=== PATIENT | male | born 1980 | race Caucasian/White ===

== ENCOUNTER 2018-07-22 17:09 | Emergency (ER) | payer BC ==
[2018-07-22 19:12] VITALS: BP 137/82
--- NOTE | 2018-07-22 19:43 | UC ---
Throat Pain/Nasal Kamaljit HPI - HPI Summary HPI Summary: 38-year-old male with past medical history presents with 1 week of dry scratchy throat initially started out with cough, cough has improved, and throat dryness and scratchiness has persisted. Denies any fevers. No nausea or vomiting. Denies any abdominal pain. Has had similar prior episodes but not of this duration. - History of Current Complaint Chief Complaint: UCGeneralIllness Stated Complaint: THROAT COMPLAINT Pain Intensity: 4 - Allergies/Home Medications Allergies/Adverse Reactions: Allergies Allergy/AdvReac Type Severity Reaction Status Date / Time No Known Allergies Allergy Verified 07/22/18 19:05 Home Medications: Home Medications Pectin [Throat Drops] 6 mg MM DAILY PRN 07/22/18 [History Confirmed 07/22/18] PMH/Surg Hx/FS Hx/Imm Hx - Additional Past Medical History Additional PMH: Patient denies any history of diabetes, hypertension, or hyperlipidemia Previously Healthy: Yes - Surgical History Surgical History: None - Social History Alcohol Use: Weekly Substance Use Type: None Smoking Status (MU): Former Smoker When Did the Patient Quit Smoking/Using Tobacco: 2006 Review of Systems Constitutional: Negative Skin: Negative Eyes: Negative ENT: Sore Throat Respiratory: Negative Cardiovascular: Negative Gastrointestinal: Negative Musculoskeletal: Negative Neurological: Negative All Other Systems Reviewed And Are Negative: Yes Physical Exam - Summary Physical Exam Summary: Gen: alert, in no acute distress HEENT: EOMI, normocephalic, atruamatic, posterior pharyngeal erythema, no tonsillar exudate or swelling Neck: supple, no masses. Full range of motion without stiffness. CV: Normal s1 s2, no murmurs Resp: normal breath sounds b/l GI: no tenderness, no masses Musculoskeletal: normal ROM all 4 extremities Neuro: no obvious focal neurological deficits Skin: no rash Lymph: mild cervical lymphadenopathy Psych: appropriate affect, oriented Triage Information Reviewed: Yes Vital Signs: Initial Vital Signs Temp 37.3 C 07/22/18 19:06 Pulse 76 07/22/18 19:06 Resp 16 07/22/18 19:06 BP 137/82 07/22/18 19:06 Pulse Ox 100 07/22/18 19:06 Throat Pain/Nasal Course/Dx - Course Assessment/Plan: Rapid strep negative, I instructed the patient to follow up with his primary care physician - Differential Dx/Diagnosis Provider Diagnoses: sore throat Discharge - Sign-Out/Discharge Documenting (check all that apply): Patient Departure All imaging exams completed and their final reports reviewed: No Studies - Discharge Plan Condition: Stable Disposition: HOME Prescriptions: Phenol/Glycerin [Chloraseptic Max Sore Thr] 1 spr MT Q2H PRN #1 bottle PRN Reason: Sore Throat Patient Education Materials: Pharyngitis (ED) Referrals: No Primary Care Phys,NOPCP [Primary Care Provider] - Porsha Paulino MD [Medical Doctor] - Thuy Varghese MD [Medical Doctor] - Additional Instructions: PLEASE MAKE AN APPOINTMENT TO BE SEEN BY A PRIMARY CARE DOCTOR WITHIN 1-2 WEEKS PLEASE REPORT TO THE ER FOR ANY WORSENING OR CONCERNING SYMPTOMS - Billing Disposition and Condition Condition: STABLE Disposition: Home
== END 2018-07-22 21:17 | disposition home or self-care (01) ==
LOC: UCCORT 17:09
DX: J02.9 Acute pharyngitis, unspecified (principal); Z87.891 Personal history of nicotine dependence
CPT/HCPCS: 87651; 99202; G0463